=== PATIENT | male | born 1990 | race Caucasian/White ===

== ENCOUNTER 2016-10-22 00:40 | Emergency (ER) | payer SELFPAY ==
--- NOTE | 2016-10-22 01:06 | Emergency Department Record ---
History of Present Illness - General Chief complaint: GI Bleed Stated complaint: BLOOD ON RECTUM Time Seen by Provider: 10/22/16 00:55 Source: Patient Mode of Arrival: Ambulatory Limitations: No limitations - History of Present Illness Initial comments: The patient is here due to rectal bleeding. He was at work and sneezed and felt a sharp pain around his anus. He then had a BM and noticed blood on the TP. There was no blood in the stool or in the bowl. An hour later he felt something wet around his anus and noticed blood again so he decided to come to the ER. He denies any pain, fever, nausea, vomiting, diarrhea. He states he has no hx of hemmorhoids. MD complaint: Blood on toilet paper Onset/Timin -: Hour(s) Severity scale (1-10): 1 Quality: Other Worsens with: Bowel movement Associated Symptoms: Denies other symptoms Treatments Prior to Arrival: None - Related Data Previous Rx's Medication Instructions Recorded Pramoxine HCl [Proctofoam] 15 gm TP BID #1 foam 10/22/16 Allergies Allergy/AdvReac Type Severity Reaction Status Date / Time atomoxetine HCl AdvReac orthostatic Verified 10/22/16 00:52 [From Strattera] hypotension Travel Screening - Travel/Exposure Within Last 30 Days Have you traveled within the last 30 days?: No - Travel Symptoms Symptom Screening: None Review of Systems Constitutional: Denies: Chills, Fever Eyes: Denies: Eye discharge ENT: Denies: Congestion Respiratory: Denies: Cough, Dyspnea Past Medical History - SOCIAL HISTORY Smoking Status: Current every day smoker - RESPIRATORY Hx Respiratory Disorders: No - CARDIOVASCULAR Hx Cardio Disorders: No - NEURO Hx Neuro Disorders: No - GI Hx GI Disorders: No - Hx Genitourinary Disorders: No - ENDOCRINE Hx Endocrine Disorders: No - MUSCULOSKELETAL Hx Musculoskeletal Disorders: No - PSYCH Hx Psych Problems: Yes Hx Depression: Yes Comment:: ADHD - HEMATOLOGY/ONCOLOGY Hx Hematology/Oncology Disorders: No Family Medical History Any Significant Family History?: Yes Hx Diabetes: Grandparents Hx Heart Disease: Father, Grandparents Hx HTN: Grandparents Physical Exam - General General Appearance: Alert, Oriented x3, Cooperative, No acute distress - Head Head exam: Atraumatic, Normocephalic, Normal inspection - Eye Eye exam: Normal appearance, PERRL - Neck Neck exam: Normal inspection, Full ROM. negative: Tenderness - Respiratory Respiratory exam: Normal lung sounds bilaterally. negative: Respiratory distress - Cardiovascular Cardiovascular Exam: Regular rate, Normal rhythm, Normal heart sounds - GI/Abdominal GI/Abdominal exam: Soft, Normal bowel sounds. negative: Rebound, Rigid, Tenderness - Rectal Rectal exam: Normal rectal tone. negative: Normal inspection (There is a very small hemorrhoid at about the 7:00 position that has a very small fissue present that is bleeding with palpation. ) - Extremities Extremities exam: Normal inspection, Full ROM, Normal capillary refill. negative: Tenderness Course Vital Signs 10/22/16 00:50 Temperature 98.0 F Pulse Rate [ 74 Pulse Ox Probe] Respiratory 18 Rate Blood Pressure 119/69 [Left Arm] Pulse Ox 98 - Reevaluation(s) Reevaluation #1: The patient is doing very well at this time and denies any pain or discomfort. He is resting comfortably and we did discuss the issues with the bleeding from the anal verge. His lab work is normal and he is directed to F/U with his PCP next week if not better. 10/22/16 01:40 10/22/16 01:43 Medical Decision Making - Data Complexity MDM Data: Labs Ordered and/or Reviewed - Lab Data Result diagrams: 10/22/16 01:07 10/22/16 01:07 Disposition Disposition: Discharge Clinical Impression: Fissure, anal Disposition: Home, Self-Care Condition: (1) Good Instructions: Anal Fissure (ED) Additional Instructions: Please be very gentle with BM's and wiping. Use the Proctofoam as directed. Please see your PCP on Tuesday if still bleeding and return to the ER if worse. Prescriptions: Pramoxine HCl [Proctofoam] 15 gm TP BID #1 foam Forms: Patient Portal Access Time of Disposition: 01:43
[2016-10-22 01:18] LABS: BASO % 0.4 % (0-6); EOS % 1.5 % (0-6); GRAN % 63.4 % (47-80); HEMATOCRIT 46.1 % (42.0-52.0); HEMOGLOBIN 16.4 gm/dl (14.0-18.0); LYMPH % 28.1 % (16-45); MEAN CELL VOLUME 87.1 fl (81-97); MEAN CORPUSCULAR HGB CONC 35.6 g/dl (32-36); MEAN PLATELET VOLUME 10.5 fl (7.4-10.4); MONO % 6.6 % (0-9); PLATELET COUNT 211 K/uL (130-400); RED BLOOD COUNT 5.29 M/uL (4.40-5.70); RED CELL DISTRIBUTION WIDTH 12.2 % (11.5-14.5); WHITE BLOOD COUNT W/O DIFF 10.2 K/uL (4.2-12.2)
[2016-10-22 01:26] LABS: ALB/GLOB RATIO 1.9 (1.1-1.8); ALBUMIN 4.9 gm/dL (3.5-5.0); ALKALINE PHOSPHATASE 64 U/L (38-126); ALT/SGPT 34 U/L (21-72); ANION GAP 10.2 (7-16); AST/SGOT 27 U/L (17-59); BILIRUBIN,TOTAL 0.47 mg/dL (0.2-1.3); BLOOD UREA NITROGEN 11 mg/dL (9-20); CARBON DIOXIDE 29.8 mmol/L (22-30); EST GLOMERULAR FILTRATION RATE > 60 ml/min; GLUCOSE,RANDOM 95 mg/dL (70-110); TOTAL PROTEIN 7.5 gm/dL (6.3-8.2)
== END 2016-10-22 01:50 | disposition home or self-care (01) ==
LOC: ER 00:40
DX: K60.2 Anal fissure, unspecified (principal)
CPT/HCPCS: 80053; 85025; 99283

== ENCOUNTER 2017-05-31 17:44 | Emergency (ER) | payer SELFPAY ==
[2017-05-31] MEDS ORDERED: 0.9 % SODIUM CHLORIDE 1,000 ML BAG IV ONE (18:13)
--- NOTE | 2017-05-31 18:13 | Emergency Department Record ---
History of Present Illness - General Chief complaint: Weakness Stated complaint: WEAKNESS Time Seen by Provider: 05/31/17 18:04 Source: Patient Mode of Arrival: Ambulatory Limitations: No limitations - History of Present Illness Initial comments: 26 yo male presents with weakness. He woke up today feeling very fatigued. He went to work but felt like he could not make it through the day. He states it is like coming off an adrenaline zhao. No fever. No vomiting or diarrhea. No rash. No headache. No double vision or vision changes. No neck pain. No chest pain. No tremor or shaking. He has had a mild cough for one day that is non productive. No sore throat. MD Complaint: Generalized weakness Onset/Timin -: Days(s) Location: Generalized Severity scale (1-10): 3 Quality: Aching Improves with: None Worsens with: None Associated Symptoms: Denies other symptoms - Gay Coma Scale Eye Response: (4) Open spontaneously Motor Response: (6) Obeys commands Verbal Response: (5) Oriented [place] Total: 15 - Symptoms of Stroke Onset of Symptoms Date: 05/31/17 Onset of Symptoms Time: 15:30 - Related Data Home Medications Medication Instructions Recorded Confirmed Last Taken No Home Med [NO HOME MEDS] 05/31/17 05/31/17 Unknown Allergies Allergy/AdvReac Type Severity Reaction Status Date / Time atomoxetine HCl AdvReac orthostatic Verified 05/31/17 18:04 [From [place] hypotension Travel Screening - Travel/Exposure Within Last 30 Days Have you traveled within the last 30 days?: No - Travel/Exposure Within Last Year Have you traveled outside the [place] in the last year?: No - Additonal Travel Details Have you been exposed to anyone with a communicable illness?: No - Travel Symptoms Symptom Screening: None Review of Systems Constitutional: Reports: Malaise, Weakness. Denies: Chills, Fever Eyes: Denies: Eye discharge, Eye pain, Photophobia, Vision change ENT: Denies: Congestion, Dental pain, Throat pain Respiratory: Denies: Cough, Dyspnea, Hemoptysis, Stridor, Wheezes Cardiovascular: Denies: Chest pain, Dyspnea on exertion, Edema, Palpitations, Syncope Endocrine: Reports: Fatigue. Denies: Heat or cold intolerance, Polydipsia, Polyuria Gastrointestinal: Denies: Abdominal pain, Constipation, Diarrhea, Nausea, Vomiting Genitourinary: Denies: Dysuria, Frequency, Hematuria, Urgency Musculoskeletal: Denies: Arthralgia, Back pain, Joint swelling, Myalgia, Neck pain Skin: Denies: Bruising, Change in color, Rash Neurological: Reports: Weakness. Denies: Abnormal gait, Confusion, Headache, Numbness, Paresthesias, Seizure, Tingling, Tremors, Vertigo Psychiatric: Denies: Anxiety Hematological/Lymphatic: Denies: Blood Clots, Easy bleeding, Easy bruising, Swollen glands Past Medical History - SOCIAL HISTORY Smoking Status: Current every day smoker Alcohol Use: Occasional Drug Use: Occasional Drug Use Detail:: Marijuana - RESPIRATORY Hx Respiratory Disorders: No - CARDIOVASCULAR Hx Cardio Disorders: No - NEURO Hx Neuro Disorders: No - GI Hx GI Disorders: No - Hx Genitourinary Disorders: No - ENDOCRINE Hx Endocrine Disorders: No - MUSCULOSKELETAL Hx Musculoskeletal Disorders: No - PSYCH Hx Psych Problems: Yes Hx Depression: Yes Comment:: ADHD - HEMATOLOGY/ONCOLOGY Hx Hematology/Oncology Disorders: No Family Medical History Any Significant Family History?: Yes Hx Diabetes: Grandparents Hx Heart Disease: Father, Grandparents Hx HTN: Grandparents Physical Exam - General General Appearance: Alert, Oriented x3, Cooperative, No acute distress Limitations: No limitations - Head Head exam: Atraumatic, Normocephalic, Normal inspection - Eye Eye exam: Normal appearance, PERRL, EOMI. negative: Conjunctival injection, Nystagmus, Periorbital swelling, Periorbital tenderness, Scleral icterus Pupils: Normal accommodation. negative: Irregular, Unequal - ENT ENT exam: Normal exam, Mucous membranes moist Ear exam: Normal external inspection Nasal Exam: Normal inspection Mouth exam: Normal external inspection. negative: Drooling, Muffled voice Teeth exam: Normal inspection Throat exam: Normal inspection. negative: Tonsillar erythema, Tonsillomegaly, Tonsillar exudate, R peritonsillar mass, L peritonsillar mass - Neck Neck exam: Normal inspection, Full ROM - Respiratory Respiratory exam: Normal lung sounds bilaterally. negative: Respiratory distress - Cardiovascular Cardiovascular Exam: Regular rate, Normal rhythm, Normal heart sounds Peripheral Pulses: 2+: Radial (R), Radial (L) - GI/Abdominal GI/Abdominal exam: Soft. negative: Tenderness - Rectal Rectal exam: Deferred - exam: Deferred - Extremities Extremities exam: Normal inspection, Full ROM, Normal capillary refill. negative: Calf tenderness, Joint swelling, Pedal edema, Tenderness - Back Back exam: Reports: Normal inspection, Full ROM. Denies: CVA tenderness (R), CVA tenderness (L) - Neurological Neurological exam: Alert, CN II-XII intact, Normal gait, Oriented X3, Reflexes normal (symmetric +1 to2 bilatereal biceps and patellar), Other (No PND, normal shelf stocker, normal biceps, and triceps, quads intact full strength, normal finger to nose, ). negative: Abnormal gait, Altered, Motor sensory deficit - Psychiatric Psychiatric exam: Normal affect, Normal mood. negative: Agitated, Anxious, Flat affect - Skin Skin exam: Dry, Intact, Normal color, Warm. negative: Cyanosis, Diaphoretic, Erythema, Mottled Course Vital Signs 05/31/17 17:57 Temperature 97.7 F Pulse Rate 90 Respiratory 16 Rate Blood Pressure 134/80 Pulse Ox 99 - Reevaluation(s) Reevaluation #1: 05/31/17 18:45 The labs were reviewed No acute changes on the CBC The UA was negative The UDS was only positive for marijuana The mono is negative 05/31/17 18:56 The CMP was negative 05/31/17 18:58 There are no acute changes on the labs, the vitals or the physical examination I discussed with the patient follow up with his PCP or return to the ER for a recheck if worse or not improving in the next few days. 05/31/17 19:04 The CK and CRP are negative. Medical Decision Making - Lab Data Result diagrams: 05/31/17 18:20 05/31/17 18:20 Disposition Disposition: Discharge Clinical Impression: Weakness Fatigue Qualifiers: Fatigue type: unspecified Qualified Code(s): R53.83 - Other fatigue Disposition: Home, Self-Care Condition: (1) Good Instructions: Weakness (ED), Fatigue (ED) Additional Instructions: Return for a check up in the next 1-2 days if not improving Call your doctor for close follow up to review the test performed Return sooner if worse, fever, numbness, tingling, pain, fever, any new concerns. Forms: Patient Portal Access Quality - Quality Measures Quality Measures: N/A - Blood Pressure Screening Does Patient Have Any of the Following: No Blood Pressure Classification: Pre-Hypertensive BP Reading Systolic Measurement: 134 Diastolic Measurement: 80 Screening for High Blood Pressure: < Pre-Hypertensive BP, F/U Documented > [ G8950] Pre-Hypertensive Follow-up Interventions: Referral to alternative/primary care provider.
[2017-05-31 18:25] LABS: BASO % 0.3 % (0-6); EOS % 1.3 % (0-6); HEMATOCRIT 45.9 % (42.0-52.0); HEMOGLOBIN 16.3 gm/dl (14.0-18.0); MEAN CELL VOLUME 86.9 fl (81-97); MEAN CORPUSCULAR HEMOGLOBIN 30.9 pg (27-33); MEAN CORPUSCULAR HGB CONC 35.5 g/dl (32-36); MEAN PLATELET VOLUME 10.4 fl (7.4-10.4); MONO % 8.4 % (0-9); PLATELET COUNT 191 K/uL (130-400); RED BLOOD COUNT 5.28 M/uL (4.40-5.70); WHITE BLOOD COUNT W/O DIFF 5.9 K/uL (4.2-12.2)
[2017-05-31 18:38] LABS: URINE APPEARANCE CLEAR; URINE BILIRUBIN NEGATIVE (NEGATIVE); URINE BLOOD NEGATIVE (NEGATIVE); URINE COLOR YELLOW; URINE GLUCOSE (UA) NEGATIVE (NEGATIVE); URINE KETONE NEGATIVE (NEGATIVE); URINE LEUKOCYTE ESTERASE NEGATIVE (NEGATIVE); URINE NITRITE NEGATIVE (NEGATIVE); URINE PROTEIN NEGATIVE (NEGATIVE); URINE UROBILINOGEN 0.2 E.U./dL (0.20 - 1.00)
[2017-05-31 18:41] LABS: AMPHETAMINE SCREEN URINE NOT DETECTED; BARBITURATE SCREEN URINE NOT DETECTED; BENZODIAZEPINE SCREEN URINE NOT DETECTED; COCAINE SCREEN URINE NOT DETECTED; METHADONE SCREEN URINE NOT DETECTED; METHAMPHETAMINE SCREEN NOT DETECTED; OPIATE SCREEN URINE NOT DETECTED; OXYCODONE SCREEN URINE NOT DETECTED; PHENCYCLIDINE SCREEN URINE NOT DETECTED; PROPOXYPHENE SCREEN URINE NOT DETECTED; THC SCREEN URINE DETECTED; TRICYCLIC ANTIDEPRESSANT SCRN NOT DETECTED
[2017-05-31 18:53] LABS: ALB/GLOB RATIO 1.8 (1.1-1.8); ALBUMIN 4.8 g/dL (4.0-5.0); ALKALINE PHOSPHATASE 72 U/L (40-129); ALT/SGPT 18 U/L (<41); AST/SGOT 19 U/L (10.0-50.0); BLOOD UREA NITROGEN 12 mg/dL (6-20); C-REACTIVE PROTEIN < 0.3 mg/L (<5.0); CREATININE 0.7 mg/dL (0.7-1.2); EST GLOMERULAR FILTRATION RATE > 60 mL/min; GLUCOSE,RANDOM 85 mg/dL (74-109); TOTAL PROTEIN 7.4 g/dL (6.6-8.7)
[2017-05-31 19:08] LABS: THYROID STIMULATING HORMONE 1.28 uIU/mL (0.270-4.20)
== END 2017-05-31 19:23 | disposition home or self-care (01) ==
LOC: ER 17:44
DX: R53.1 Weakness (principal); R53.83 Other fatigue; F17.210 Nicotine dependence, cigarettes, uncomplicated
CPT/HCPCS: 80053; 80305; 81003; 82550; 84443; 85025; 86140; 86308; 99284; J7030

== ENCOUNTER 2018-01-24 13:49 | Emergency (ER) | payer SELFPAY ==
--- NOTE | 2018-01-24 14:20 | Emergency Department Record ---
History of Present Illness - General Chief complaint: Pain Stated complaint: LT RIB PAIN Time Seen by Provider: 01/24/18 14:15 Mode of Arrival: Ambulatory Limitations: No limitations - History of Present Illness Initial comments: 27 yo male presents after being hit in the left rib by a broken piece of sheet metal at work. 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 He was hit in the lateral mid left ribs. He has a small abrasion. No shortness of breath. The pain is mild and he declined pain medication. No abdominal pain. The injury occurred between 12:30 and 1pm. Onset/Timin -: Hour(s) Location: Left, Other History of Same: No -: Yes Myalgia Severity scale (1-10): 4 Quality: Sharp Consistency: Constant, Intermittent Improves with: Immobilization Worsens with: Exertion, Walking, Weight bearing Associated Symptoms: Denies other symptoms - Related Data Allergies Allergy/AdvReac Type Severity Reaction Status Date / Time atomoxetine HCl AdvReac orthostatic Verified 05/31/17 18:04 [From [facility]] hypotension Travel Screening - Travel/Exposure Within Last 30 Days Have you traveled within the last 30 days?: No Review of Systems Constitutional: Denies: Chills, Fever, Weakness Eyes: Denies: Eye discharge ENT: Denies: Congestion, Throat pain Respiratory: Denies: Cough, Dyspnea, Hemoptysis, Stridor Cardiovascular: Reports: Chest pain (Left rib). Denies: Edema Endocrine: Denies: Fatigue, Polydipsia, Polyuria Gastrointestinal: Denies: Abdominal pain, Diarrhea, Nausea, Vomiting Genitourinary: Denies: Dysuria, Frequency, Hematuria Musculoskeletal: Denies: Arthralgia, Back pain, Neck pain Skin: Denies: Bruising, Change in color, Rash Neurological: Denies: Headache, Numbness, Weakness Psychiatric: Denies: Anxiety Hematological/Lymphatic: Denies: Easy bleeding, Easy bruising, Swollen glands Past Medical History - SOCIAL HISTORY Smoking Status: Current every day smoker Alcohol Use: None Drug Use: None - RESPIRATORY Hx Respiratory Disorders: No - CARDIOVASCULAR Hx Cardio Disorders: No - NEURO Hx Neuro Disorders: No - GI Hx GI Disorders: No - Hx Genitourinary Disorders: No - ENDOCRINE Hx Endocrine Disorders: No - MUSCULOSKELETAL Hx Musculoskeletal Disorders: No - PSYCH Hx Psych Problems: Yes Hx Depression: Yes Comment:: ADHD - HEMATOLOGY/ONCOLOGY Hx Hematology/Oncology Disorders: No Family Medical History Any Significant Family History?: Yes Hx Diabetes: Grandparents Hx Heart Disease: Father, Grandparents Hx HTN: Grandparents Physical Exam - General General Appearance: Alert, Oriented x3, Cooperative, No acute distress Limitations: No limitations - Head Head exam: Atraumatic, Normal inspection - Eye Eye exam: Normal appearance. negative: Conjunctival injection - ENT ENT exam: Normal exam Ear exam: Normal external inspection Nasal Exam: Normal inspection Mouth exam: Normal external inspection - Neck Neck exam: Normal inspection - Respiratory Respiratory exam: Normal lung sounds bilaterally, Chest wall tenderness. negative: Accessory muscle use, Decreased breath sounds, Prolonged expiratory, Rales, Respiratory distress, Rhonchi, Stridor, Wheezes - Cardiovascular Cardiovascular Exam: Regular rate, Normal rhythm, Normal heart sounds - GI/Abdominal GI/Abdominal exam: Soft. negative: Distended, Guarding, Rebound, Rigid, Tenderness - Rectal Rectal exam: Deferred - exam: Deferred - Extremities Extremities exam: Normal inspection, Full ROM, Normal capillary refill. negative: Tenderness Image of Full Body: 1 - small abrasion, focal rib tenderness, clear lungs, no deformity - Back Back exam: Denies: CVA tenderness (R), CVA tenderness (L) - Neurological Neurological exam: Alert, Oriented X3 - Psychiatric Psychiatric exam: Normal affect, Normal mood. negative: Agitated, Anxious - Skin Skin exam: Dry, Intact, Normal color, Warm Course Vital Signs 01/24/18 13:58 Temperature 98.5 F Pulse Rate 91 H Respiratory 20 Rate Blood Pressure 121/81 Pulse Ox 97 - Reevaluation(s) Reevaluation #1: 01/24/18 14:18 The vitals were reviewed No acute changes XR ordered of the left ribs and chest 01/24/18 14:45 The XR's were reviewed. No acute findings. No obvious fracture or PTX Disposition Disposition: Discharge Clinical Impression: Contusion of rib on left side Qualifiers: Encounter type: initial encounter Qualified Code(s): S20.212A - Contusion of left front wall of thorax, initial encounter Disposition: Home, Self-Care Condition: (1) Good Instructions: Rib Contusion (ED) Additional Instructions: Return if worse, short of breath or any new concerns Tylenol or Motrin for discomfort Forms: Patient Portal Access Time of Disposition: 14:46 Quality - Quality Measures Quality Measures: N/A - Blood Pressure Screening Does Patient Have Any of the Following: No Blood Pressure Classification: Pre-Hypertensive BP Reading Systolic Measurement: 121 Diastolic Measurement: 81 Screening for High Blood Pressure: < Pre-Hypertensive BP, F/U Documented > [ G8950] Pre-Hypertensive Follow-up Interventions: Referral to alternative/primary care provider.
--- NOTE | 2018-01-25 09:51 | RADIOLOGY REPORT ---
EXAM: CHEST AND LEFT RIB SERIES HISTORY: PAIN. TECHNIQUE: Frontal view of the chest and four views of the left ribs were obtained. Comparison: None. FINDINGS: The heart size is normal. The lungs are clear. No pneumothorax. Negative for left rib fracture. The soft tissues are unremarkable. IMPRESSION: NEGATIVE EXAMINATION. JOB NUMBER: [id number] MTDD
== END 2018-01-24 15:03 | disposition home or self-care (01) ==
LOC: ER 13:49
DX: S20.212A Contusion of left front wall of thorax, initial encounter (principal); W20.8XXA Other cause of strike by thrown, projected or falling object, initial encounter; Y93.89 Activity, other specified; Y92.63 Factory as the place of occurrence of the external cause; Y99.0 Civilian activity done for income or pay
CPT/HCPCS: 99283